=== PATIENT | female | born 1955 | race African-American/Black ===

== ENCOUNTER 2019-07-06 23:56 | Emergency (ER) | payer OTHER ==
[~2019-07-06] VITALS: Ht 160 cm; Wt 108.9 kg
[2019-07-07 01:36] LABS: Basophils # (auto) 0 uL; Basophils % (auto) 0.4 % (0.0-2.0); Eosinophils # (auto) 0.1 uL; Eosinophils % (auto) 0.8 % (0.0-7.0); Hematocrit 37.7 % (36.0-46.0); Hemoglobin 12.5 g/dL (12.2-16.2); Lymphocytes # (auto) 1.4 uL; Lymphocytes % (auto) 18.4 % (10.0-50.0); Mean Corpuscular Hgb Conc. 33.2 g/dL (32.0-36.0); Mean Corpuscular Volume 90.6 fL (80.0-100.0); Monocytes # (auto) 0.6 uL; Monocytes % (auto) 8.3 % (0.0-12.0); Neutrophils # (auto) 5.4 uL; Neutrophils % (auto) 72.1 % (37.0-80.0); Platelet Count (auto) 201 10^3/uL (140-450); Red Blood Cells 4.16 10^6/uL (4.0-5.20); Red Cell Distribution Width 15.1 % (11.8-14.3); White Blood Cell 7.5 10^3/uL (4.4-10.8)
[2019-07-07 02:01] LABS: Albumin 3.6 g/dL (3.4-5.0); Calcium 8.4 mg/dL (8.5-10.1); Potassium 3.5 mmol/L (3.5-5.1)
[2019-07-07 02:04] LABS: Bilirubin, Total 0.3 mg/dL (0.2-1.0); Total Protein 7.8 g/dL (6.4-8.2)
[2019-07-07 07:25] LABS: Urine Bacteria FEW /hpf (None Seen); Urine Blood Negative /uL (Negative); Urine Mucus FEW (None Seen); Urine WBC 2 /hpf (0 - 5)
[2019-07-07] MEDS ORDERED: FLEET MINERAL OIL ENEMA 133 ML PR ONE (07:30)
[2019-07-07 07:52] VITALS: BP 154/83
== END 2019-07-07 08:45 | disposition home or self-care (01) ==
LOC: ER 07-07 00:01
DX: K80.20 Calculus of gallbladder without cholecystitis without obstruction (principal); K59.01 Slow transit constipation; Z98.84 Bariatric surgery status; M47.896 Other spondylosis, lumbar region
CPT/HCPCS: 36415; 74176; 80053; 81001; 82150; 83690; 85025